=== PATIENT | female | born 1990 | race Caucasian/White ===

== ENCOUNTER 2018-10-26 18:06 | Outpatient (REF) | payer OTHER, MEDICAID, SELFPAY ==
[2018-10-26 21:33] LABS: Absolute Basophil Count 0.03 k/cumm (0.0-0.2); Absolute Eosinophil Count 0.06 k/cumm (0.0-0.7); Absolute Neutrophil Count 3.71 k/cumm (1.2-6.7); Basophils % 0.6; Eosinophils % 1.1; HCT 38.3 % (36.0-46.0); HGB 12.4 g/dL (12.0-15.5); Lymphocytes % 20.8; Mean Corp. HGB Concentration 32.4 g/dL (32.0-36.0); Mean Corpuscular Hemoglobin 29.1 pg (27.0-33.0); Mean Corpuscular Volume 89.9 fL (80-95); Mean Platelet Volume 11.8 fL (8.0-11.0); Monocytes % 7.5; Platelet Count 194 x1000/uL (130-400); RBC 4.26 m/cumm (4.00-5.20); RBC Distribution Width 12.8 % (11.7-14.6)
[2018-10-26 21:42] LABS: ALT 24 U/L (12-78); AST 19 U/L (15-37); Alkaline Phosphatase 54 U/L (46-116); Anion Gap 9.5 mmol/L (3-11); BUN 10 mg/dL (7-18); Bilirubin, Total 0.4 mg/dL (0.2-1.0); CO2 28.5 mmol/L (21.0-32.0); CREATININE 0.72 mg/dL (0.55-1.02); Calcium 9.5 mg/dL (8.5-10.1); Chloride 104 mmol/L (98-107); Glucose 83 mg/dL (70-100); Potassium 3.7 mmol/L (3.5-5.1); Sodium 142 mmol/L (136-145); Total Protein 7.9 g/dL (6.4-8.2)
== END 2018-10-26 18:26 ==
LOC: NCHCN 18:06
PROVIDERS: PCP Family Medicine; Visit Provider Nurse Practitioner
DX: R10.32 Left lower quadrant pain (principal); R19.7 Diarrhea, unspecified; R11.0 Nausea
CPT/HCPCS: 80053; 85025

== ENCOUNTER 2018-10-28 09:17 | Outpatient (REF) | payer MEDICAID, SELFPAY ==
[2018-10-30 11:08] LABS: Campylobacter PCR SEE COMMENTS; Salmonella PCR SEE COMMENTS; Shiga Toxin PCR SEE COMMENTS; Shigella/Enteroinvasive Ecoli SEE COMMENTS
== END 2018-10-28 09:37 ==
LOC: NCHCN 09:17
PROVIDERS: Nurse Practitioner; PCP Family Medicine; Visit Provider Family Medicine
DX: R10.32 Left lower quadrant pain (principal); R19.7 Diarrhea, unspecified; R11.0 Nausea
CPT/HCPCS: 87329; 87505; 87177

== ENCOUNTER 2018-12-29 01:05 | Outpatient (CLI) | payer MEDICAID, SELFPAY ==
--- NOTE | 2018-12-29 10:11 | DI.US_ITS ---
SYMPTOMS/DIAGNOSIS: ABD PAIN LT UPPER QUAD, R10.12 ABDOMEN ULTRASOUND: The liver is normal in size and echogenicity. The gallbladder has a normal appearance, without evidence of stones or wall thickening. There is no evidence of biliary dilatation. The kidneys are normal in size. There is no evidence of hydronephrosis. There is a question of two small stones in the left kidney vs artifact. There is no perinephritic collection. IMPRESSION: 1. Question of two small nonobstructing stones in the left kidney vs artifact. 2. Two small simple cysts of the right kidney.
== END 2018-12-29 01:25 ==
PROVIDERS: PCP Family Medicine; Visit Provider Specialist/Technologist Athletic Trainer
DX: R10.12 Left upper quadrant pain (principal); N28.1 Cyst of kidney, acquired
CPT/HCPCS: 76700

== ENCOUNTER 2019-01-11 13:48 | Outpatient (REF) | payer MEDICAID, SELFPAY ==
[2019-01-11 21:31] LABS: TSH (W/Ref FT4) 0.69 uIU/mL (0.358-3.74)
== END 2019-01-11 14:08 ==
LOC: NCHCN 13:48
PROVIDERS: PCP Family Medicine; Visit Provider Specialist/Technologist Athletic Trainer
DX: R63.4 Abnormal weight loss (principal)
CPT/HCPCS: 84443

== ENCOUNTER 2019-04-06 09:47 | Outpatient (REF) | payer MEDICAID, SELFPAY ==
[2019-04-08 18:30] LABS: Calprotectin 42.8 mcg/g
== END 2019-04-06 10:07 ==
LOC: LBN 09:47
PROVIDERS: PCP Family Medicine; Visit Provider Nurse Practitioner Family
DX: R10.10 Upper abdominal pain, unspecified (principal); R10.30 Lower abdominal pain, unspecified
CPT/HCPCS: 83993

== ENCOUNTER 2020-07-10 11:42 | Emergency (ER) | payer MEDICAID, SELFPAY ==
[2020-07-10 11:54] VITALS: BP 96/56; PULSE 75; RESP 20; TEMP 36.7; O2SAT 99
--- NOTE | 2020-07-10 13:00 | DI.RAD_ITS ---
EXAM: XR HAND LT COMPLETE CLINICAL HISTORY: Dog bite, R/O fracture, foreign body. TECHNIQUE: 2D digital imaging was performed. COMPARISON: No exams were available for comparison FINDINGS: BONES: No acute fracture is present. No bony destructive lesion is seen. JOINTS: No dislocation present. SOFT TISSUE: Normal. No radiopaque foreign body. IMPRESSION: Unremarkable radiographs of the left hand. DATA REPOSITORY: RADIATION DOSE DELIVERED:
--- NOTE | 2020-07-10 13:28 | W.ED.GENAD ---
Discharge Plan Disposition Patient Disposition: HOME Condition: Stable Discharge Details Clinical Impression: Dog bite of left hand Primary Care Provider: Andie Jones ED Provider: Maral Martinez Home Meds and New Rx's Prescriptions: No Action sertraline 100 mg tablet 100 mg PO DAILY RF: 0 Discharge Instructions Instructions: Animal Bite (ED) Additional Instructions: Keep wound clean and dry allow to air out at least 2 hours a day. When out or doing things around the house keep covered. Take prescriptions as directed. No soaking. Return if any worsening signs of infection including increased redness, red streaks going up your arm, fever or increased pain. Follow up with primary care provider in 3-5 days. Return to ED sooner if any worsening or concerns. Increase oral fluids. Please take Tylenol or Ibuprofen with food every 4-6 hours as needed for pain and swelling. Referrals: Andie Jones [Primary Care Provider] - Discharge Data Discharge Date/Time-TO BE ENTERED AT DEPARTURE: 07/10/20 13:52 Medical Decision Making 30-year-old female presents with dog bite to her left palm. This occurred on Friday by her friend's dog. She was sent here by PCP for an x-ray. She was given a tetanus shot prior to arrival and antibiotics were called into the pharmacy. Patient has not taken any antibiotics as of yet. On initial exam she is noted to have 2 puncture wounds noted to her left palm. EXAM: XR HAND LT COMPLETE CLINICAL HISTORY: Dog bite, R/O fracture, foreign body. TECHNIQUE: 2D digital imaging was performed. COMPARISON: No exams were available for comparison FINDINGS: BONES: No acute fracture is present. No bony destructive lesion is seen. JOINTS: No dislocation present. SOFT TISSUE: Normal. No radiopaque foreign body. IMPRESSION: Unremarkable radiographs of the left hand. Patient was given 1 dose of Augmentin here in department and instructed to pick pulling machine tender previously for prescribed prescription. Instructed on home care and wound care, verbalized understanding. HPI General Mode of arrival: ambulatory. Date/Time Provider Initiated Documentation: 07/10/20 12:03. Limitations to Documentation: no limitations. Information obtained by: patient. HPI Narrative: 30-year-old female presents with dog bite to her left palm. This occurred on Friday by her friend's dog. She was sent here by PCP for an x-ray. She was given a tetanus shot prior to arrival and antibiotics were called into the pharmacy. Patient has not taken any antibiotics as of yet. On initial exam she is noted to have 2 puncture wounds noted to her left palm. Related Data Home Medications Medication Instructions Recorded Confirmed sertraline 100 mg PO DAILY 07/10/20 07/10/20 Allergies Allergy/AdvReac Type Severity Reaction Status Date / Time No Known Allergies Allergy Unverified 11/03/13 17:59 General Stated Complaint: AnimalBite ZEINAB: 5 Review of Systems All systems reviewed & are unremarkable except as noted in HPI and below Integumentary/Breasts Skin/Breast: Reports wounds (Dog bite noted to left hand) PFSH Social History Smoking/Tobacco Use Status: Never Smoking risk assessment performed?: Yes Alcohol Intake: never Drug use: Never Substance use type: does not use Do you feel safe at home: Yes Do you feel safe in your relationship?: Yes Exam Const General: cooperative, comfortable, no acute distress and well developed Nutritional Appearance: average body habitus Orientation: alert, awake and oriented x3 Extrem Right upper extremity: normal to inspection Left upper extremity: full ROM, normal capillary refill and no joint enlargement Hand/finger images: 1. Puncture wound approximately 0.5 cm 2. Puncture wound Course Vital Signs Vital signs: Vital Signs Temperature 36.7 C 07/10/20 11:54 Pulse 75 07/10/20 11:54 Respiratory Rate 07/10/20 11:54 Blood Pressure 96/56 L 07/10/20 11:54 Pulse Oximetry 99 07/10/20 11:54 Temperature 36.7 C 07/10/20 11:54 Temperature Source Skin 07/10/20 11:54 Pulse 75 07/10/20 11:54 Respiratory Rate 07/10/20 11:54 Respiratory Effort Non-Labored 07/10/20 11:57 Blood Pressure 96/56 L 07/10/20 11:54 Blood Pressure Position Sitting 07/10/20 11:54 Pulse Oximetry 99 07/10/20 11:54 Oxygen Delivery Method Room Air 07/10/20 11:54 Oxygen Flow Rate 0 07/10/20 11:54 Pain Level 0 07/10/20 11:54
[2020-07-10] MEDS: Amoxicillin 875/Clav. 125 TAB PO (13:49)
== END 2020-07-10 13:52 | disposition home or self-care (01) ==
PROVIDERS: Emergency Provider Registered Nurse Emergency; PCP Family Medicine
DX: S61.452A Open bite of left hand, initial encounter (principal); W54.0XXA Bitten by dog, initial encounter
CPT/HCPCS: 99283; 73130